=== PATIENT | female | born 1950 | race Caucasian/White ===

== ENCOUNTER 2025-06-02 22:39 | Inpatient (IN) | payer MEDICARE, OTHER ==
[~2025-06-02] VITALS: Ht 157.5 cm; Wt 54.4 kg
[2025-06-02 23:18] LABS: PLATELET COUNT (AUTO) 202 K/uL (150-450); RED BLOOD CELL COUNT(AUTO) 4.80 MIL/uL (4.0-5.2); RED CELL DISTRIBUTION WIDTH 14.2 % (11.5-15.0); WHITE BLOOD COUNT (AUTO) 6.9 K/uL (4.3-11.0)
[2025-06-02 23:25] LABS: CALCIUM, SERUM 9.5 mg/dL (8.5-10.1); CREATININE 0.7 mg/dL (0.6-1.3); SODIUM SERUM 143 mmol/L (136-145); UREA NITROGEN, BLOOD 13 mg/dL (7-18)
[2025-06-02 23:31] LABS: ASPARTATE AMINOTRANSFERASE 20 U/L (15-37); TOTAL PROTEIN, SERUM 7.1 g/dL (6.4-8.2)
[2025-06-02 23:58] LABS: APPEARANCE,URINE CLEAR (CLEAR); BLOOD, URINE 3+ Ery/uL (NEGATIVE); LEUKOCYTE ESTERASE ,URINE NEGATIVE (NEGATIVE); NITRITE, URINE NEGATIVE (NEGATIVE); UGLUCOSE NEGATIVE (NEGATIVE)
[2025-06-03 00:09] LABS: ADD URINE CULTURE NO; SQUAMOUS EPITHELIAL CELL,UR 0-2 /HPF (None Seen)
[2025-06-03 00:10] LABS: AMPHETAMINE, URINE NEGATIVE (NEGATIVE); BARBITURATE, URINE NEGATIVE (NEGATIVE); BENZODIAZEPINE, URINE NEGATIVE (NEGATIVE); CANNABINOID, URINE NEGATIVE (NEGATIVE); COCCAINE, URINE NEGATIVE (NEGATIVE); OPIATE, URINE NEGATIVE (NEGATIVE)
[2025-06-03] MEDS ORDERED: DEXTROSE 50%-WATER 50 ML DISP.SYRIN IV PRN (02:00)
[2025-06-03] MEDS ORDERED: CYAN100096 PO (02:27)
[2025-06-03] MEDS ORDERED: NITR0.4T48 SL (02:27)
[2025-06-03] MEDS ORDERED: ERGO500093 PO (02:27)
[2025-06-03] MEDS ORDERED: DIVA125C2 PO (02:27)
[2025-06-03] MEDS ORDERED: ATOR40TA PO (02:27)
[2025-06-03] MEDS ORDERED: FAMO20TA8 PO (02:27)
[2025-06-03] MEDS ORDERED: METO25TA6 PO (02:27)
[2025-06-03] MEDS ORDERED: ACETAMINOPHEN 325 MG TABLET PO PRN (03:30)
[2025-06-03] MEDS ORDERED: MAGNESIUM HYDROXIDE 30 ML UDC PO PRN (03:30)
[2025-06-03] MEDS ORDERED: MAG HYDROX/AL HYDROX/SIMETH 30 ML UDC PO PRN (03:30)
[2025-06-03] MEDS ORDERED: ZOLPIDEM TARTRATE 5 MG TABLET PO PRN (03:30)
[2025-06-03] MEDS: BLOOD SUGAR DIAGNOSTIC 1 EACH STRIP IN ONE (03:48)
[2025-06-03 04:40] VITALS: BP 159/111; TEMP 98.4; O2SAT 97
[2025-06-03 08:00] VITALS: BP 156/90; TEMP 98.1; O2SAT 97
[2025-06-03] MEDS: BLOOD SUGAR DIAGNOSTIC 1 EACH STRIP IN SCH (08:10)
[2025-06-03] MEDS: FAMOTIDINE (20 MG) 20 MG TABLET PO SCH (09:52)
[2025-06-03] MEDS: METOPROLOL TARTRATE 25 MG TABLET PO SCH (09:53)
[2025-06-03] MEDS: CYANOCOBALAMIN 500 MCG TABLET PO SCH (09:53)
[2025-06-03] MEDS: INSULIN REGULAR, HUMAN 100 UNIT/ML 3 ML VIAL SQ PRN (12:27)
[2025-06-03 16:00] VITALS: BP 122/84; TEMP 97.7; O2SAT 94
[2025-06-03 20:16] VITALS: BP 148/90; TEMP 98.4; O2SAT 97
[2025-06-03] MEDS: ATORVASTATIN 40 MG TABLET PO SCH (21:15)
[2025-06-04 08:00] VITALS: BP 128/85; TEMP 98.1; O2SAT 99
[2025-06-04 08:07] LABS: CREATININE 0.4 mg/dL (0.6-1.3)
[2025-06-04 08:09] LABS: PLATELET COUNT (AUTO) 163 K/uL (150-450); RED BLOOD CELL COUNT(AUTO) 4.92 MIL/uL (4.0-5.2); RED CELL DISTRIBUTION WIDTH 15.0 % (11.5-15.0); WHITE BLOOD COUNT (AUTO) 5.6 K/uL (4.3-11.0)
[2025-06-04 08:14] LABS: LDL 38 mg/dL (0-99)
[2025-06-04 08:18] LABS: CALCIUM, SERUM 9.0 mg/dL (8.5-10.1); CREATININE 0.6 mg/dL (0.6-1.3); SODIUM SERUM 139.0 mmol/L (136-145); UREA NITROGEN, BLOOD 9.0 mg/dL (7-18)
[2025-06-04 16:09] VITALS: BP 108/88; TEMP 98.1; O2SAT 99
[2025-06-04 21:44] VITALS: BP 120/75; TEMP 98.6; O2SAT 95
[2025-06-05 08:00] VITALS: BP 121/75; TEMP 97.5; O2SAT 97
[2025-06-05] MEDS: ERGOCALCIFEROL (VITAMIN D 2) 50,000 UNIT CAPSULE PO SCH (08:33)
[2025-06-05 16:00] VITALS: BP 136/90; TEMP 97.6; O2SAT 96
[2025-06-05 21:04] VITALS: BP 133/86; TEMP 98; O2SAT 95
[2025-06-06 08:00] VITALS: BP 130/80; TEMP 97.8; O2SAT 97
[2025-06-06 16:00] VITALS: BP 115/72; TEMP 98.1; O2SAT 98
[2025-06-06 20:30] VITALS: BP 130/86; TEMP 98.2; O2SAT 98
[2025-06-06] MEDS: MIRTAZAPINE 15 MG TABLET PO SCH (21:13)
[2025-06-07 08:00] VITALS: BP 147/95; TEMP 97.5; O2SAT 96
[2025-06-07 09:50] VITALS: BP 147/95; TEMP 97.5; O2SAT 96
[2025-06-07 16:00] VITALS: BP 116/80; TEMP 97.9; O2SAT 92
[2025-06-07 16:52] VITALS: BP 116/80; TEMP 97.9; O2SAT 92
[2025-06-07 20:04] VITALS: BP 106/84; TEMP 98.1; O2SAT 93
[2025-06-08 08:00] VITALS: BP 127/87; TEMP 98.1; O2SAT 97
[2025-06-08 16:00] VITALS: BP 138/91; TEMP 98.4; O2SAT 97
[2025-06-08] MEDS: MEMANTINE HCL 5 MG TABLET PO SCH (17:23)
[2025-06-08 20:10] VITALS: BP 128/91; TEMP 98.3; O2SAT 98
[2025-06-09 08:00] VITALS: BP 130/90; TEMP 98.2; O2SAT 93
[2025-06-09] MEDS: Z GUARD REMEDY 4 OZ OINT TP SCH (10:45)
[2025-06-09 16:00] VITALS: BP 128/92; TEMP 98.8; O2SAT 94
[2025-06-10 08:00] VITALS: BP 123/85; TEMP 97.7; O2SAT 94
[2025-06-10 16:00] VITALS: BP 118/85; TEMP 97.8; O2SAT 95
[2025-06-10 21:48] VITALS: BP 103/75; TEMP 97.9; O2SAT 96
[2025-06-11 08:00] VITALS: BP 124/91; TEMP 97.8; O2SAT 96
[2025-06-11 16:12] VITALS: BP 125/86; TEMP 98.2; O2SAT 96
[2025-06-11 22:02] VITALS: BP 106/65; TEMP 98.2; O2SAT 97
[2025-06-12 08:00] VITALS: BP 155/94; TEMP 97.3; O2SAT 94
[2025-06-12 16:00] VITALS: BP 115/72; TEMP 98.1; O2SAT 97
[2025-06-12 20:15] VITALS: BP 124/52; TEMP 98.6; O2SAT 98
[2025-06-13 08:00] VITALS: BP 130/93; TEMP 97.9; O2SAT 95
[2025-06-13 16:00] VITALS: BP 144/88; TEMP 97.9; O2SAT 98
[2025-06-13 19:40] VITALS: BP 129/81; TEMP 98.4; O2SAT 98
[2025-06-14 08:00] VITALS: BP 127/92; TEMP 97.8; O2SAT 100
[2025-06-14 16:08] VITALS: BP 128/78; TEMP 98.1; O2SAT 96
[2025-06-14 20:13] VITALS: BP 137/87; TEMP 97.7; O2SAT 97
[2025-06-15 08:00] VITALS: BP 156/96; TEMP 97.8; O2SAT 97
[2025-06-15 08:59] VITALS: BP 156/96
== END 2025-06-15 14:00 | DRG 885 ==
LOC: ER 22:50 → GPS 06-03 02:23
PROVIDERS: ADMIT Psychiatry & Neurology Psychiatry; ATTEND Nurse Practitioner Acute Care
DX: F29 Unspecified psychosis not due to a substance or known physiological condition (principal); G93.49 Other encephalopathy; I69.351 Hemiplegia and hemiparesis following cerebral infarction affecting right dominant side; F03.918 Unspecified dementia, unspecified severity, with other behavioral disturbance; J44.9 Chronic obstructive pulmonary disease, unspecified; I10 Essential (primary) hypertension; F39 Unspecified mood [affective] disorder; F03.94 Unspecified dementia, unspecified severity, with anxiety; F03.93 Unspecified dementia, unspecified severity, with mood disturbance; M19.90 Unspecified osteoarthritis, unspecified site; E78.5 Hyperlipidemia, unspecified; F20.9 Schizophrenia, unspecified; Z88.0 Allergy status to penicillin; Z73.6 Limitation of activities due to disability; F41.9 Anxiety disorder, unspecified; R26.89 Other abnormalities of gait and mobility
CPT/HCPCS: 36415; 80048-TC; 80061-TC; 80076-TC; 81001; 82565-TC; 82962-TC; 85025-TC; 87081-TC; 97110-TC; 97112-TC; 97530-TC; 98960; J1815